=== PATIENT | male | born 1940 | race Caucasian/White ===

== ENCOUNTER 2021-11-20 06:53 | Day surgery (SDC) | payer OTHER ==
[2021-11-18 12:45] VITALS: BMI 24.0
[2021-11-20] MEDS ORDERED: PROPOFOL 20 ML ONE (09:24)
== END 2021-11-20 10:15 | disposition home or self-care (01) ==
LOC: CSHSDC 06:53
PROVIDERS: ATTEND Internal Medicine Gastroenterology
PROC: 0DJD8ZZ Inspection of Lower Intestinal Tract, Via Natural or Artificial Opening Endoscopic (ICD-10-PCS; principal; 2021-11-20)
DX: Z12.11 Encounter for screening for malignant neoplasm of colon (principal); K57.30 Diverticulosis of large intestine without perforation or abscess without bleeding; K64.9 Unspecified hemorrhoids; I10 Essential (primary) hypertension; E03.9 Hypothyroidism, unspecified; E78.5 Hyperlipidemia, unspecified; Z79.899 Other long term (current) drug therapy
CPT/HCPCS: J2704